=== PATIENT | female | born 1975 | race Caucasian/White ===

== ENCOUNTER 2017-07-05 00:45 | Emergency (ER) | payer MEDICARE ==
--- NOTE | 2017-07-05 01:20 | CT Preliminary Report ---
Exam: CT HEAD W/O STROKE PROTOCOL IMPRESSION: 1. No CT evidence of large vascular territory infarct or hemorrhage. 2. Bilateral frontal white matter lesions. Differential considerations include demyelinating disease or early microvascular change. RADIA The above findings were discussed with Dr. Mcgowan by Dr. Sedrick Ndiaye at 01:19 hrs on 07/05/17. SITE ID: [id number]
[2017-07-05 01:21] LABS: BASOPHILS # (AUTO) 0.1 10^3/uL (0.0-0.1); BASOPHILS % (AUTO) 1.1 %; EOSINOPHILS # (AUTO) 0.1 10^3/uL (0.0-0.7); EOSINOPHILS % (AUTO) 1.1 %; HCT - HEMATOCRIT 39.8 % (37.0-47.0); LYMPHOCYTES # (AUTO) 3.8 10^3/uL (1.5-3.5); LYMPHOCYTES % (AUTO) 27.2 %; MEAN CORPUSCULAR HEMOGLOBIN 29.2 pg (27.0-31.0); MEAN CORPUSCULAR HGB CONC 32.8 g/dL (32.0-36.0); MEAN CORPUSCULAR VOLUME 88.9 fL (81.0-99.0); MEAN PLATELET VOLUME 8.2 fL (7.9-10.8); MONOCYTES # (AUTO) 0.9 10^3/uL (0.0-1.0); MONOCYTES % (AUTO) 6.8 %; NEUTROPHILS # (AUTO) 8.9 10^3/uL (1.5-6.6); NEUTROPHILS % (AUTO) 63.8 %; NUCLEATED RED BLOOD CELLS AUTO 0.1 /100WBC; RED BLOOD COUNT 4.47 10^6/uL (4.20-5.40); RED CELL DISTRIBUTION WIDTH 14.1 % (12.0-15.0); UNCORRECTED WHITE BLOOD COUNT 13.9 x10^3/uL; WHITE BLOOD COUNT 13.9 x10^3/uL (4.8-10.8)
[2017-07-05 01:22] LABS: PT - PROTHROMBIN TIME 11.6 secs (9.9-12.6)
[2017-07-05] MEDS ORDERED: ALTEPLASE 100 MG in WATER FOR INJECTION,STERILE 100 ML IV STA (01:22)
--- NOTE | 2017-07-05 01:22 | ED Physician Documentation ---
PD HPI FOCAL NEURO - Stated complaint Stated Complaint: R SIDE PARALYSIS - Chief complaint Chief Complaint: Neuro - History obtained from History obtained from: Patient, EMS - History of Present Illness Timing - onset: How many hours ago (1.5) Timing - details: Abrupt onset, Still present Severity of deficit: Moderate Weakness: Face, Arm, Leg Numbness: Face, Leg Associated symptoms: No: Headache, Nausea / vomiting, Seizure, Syncope, Head injury Contributing factors: negative: Anticoagulated Baseline status: positive: A&OX3, ambulatory, indep Similar symptoms before: Has not had sx before Recently seen: Not recently seen - Additional information Additional information: Patient is a 42 year old female who is brought to the emergency department for right sided deficit. According to patient and ems, ems was originally contacted because the patient had smoked some marijuana and was feeling flushed. While patient was talking to police she developed right sided deficit at around 23:30. Patient states that she had storm's palsy once before and thought that it might be that, but this time it involved her face, arm and leg. Review of Systems Constitutional: denies: Fever, Chills Eyes: reports: Decreased vision. denies: Photophobia Ears: denies: Ear pain, Drainage/discharge Nose: denies: Congestion, Epistaxis Throat: denies: Dental pain / toothache, Sore throat Cardiac: denies: Chest pain / pressure, Palpitations Respiratory: denies: Wheezing GI: denies: Abdominal Pain, Nausea, Vomiting : reports: Reviewed and negative Skin: reports: Rash Musculoskeletal: denies: Neck pain, Back pain, Extremity pain Neurologic: reports: Focal weakness, Numbness, Difficulty speaking Immunocompromised: denies: Immunocompromised PD PAST MEDICAL HISTORY - Present Medications Home Medications: Ambulatory Orders Medication Instructions Recorded Confirmed No Known Home Medications [No 07/05/17 07/05/17 Known Home Medications] - Allergies Allergies/Adverse Reactions: Allergies Allergy/AdvReac Type Severity Reaction Status Date / Time meperidine HCl * Allergy Rash Verified 05/15/13 16:21 [From Demerol] - Social History Does the pt smoke?: Yes Smoking Status: Current every day smoker - Immunizations Immunizations are current?: Yes PD ED PE EXPANDED - Derm Derm: Rash (rash on bilateral lower feet) - Neuro Neuro: Alert and Oriented X 3, Right face (right sided facial droop), RUE (no movement), RLE (minimal movement with pain), Dysarthria NIHSS - Time Time: 01:15 - Level of Consciousness Level of consciousness: (0) Alert, Keenly responsive LOC Questions: (0) Answers both Q's correct LOC Commands: (0) Performs both correctly - Gaze Best Gaze: (0) Normal - Visual Visual: (1) Partial hemianopia - Facial Palsy Facial Palsy: (2) Partial paralysis - Motor Arms (both separate) Motor Arm (right): (4) No movement Motor Arm (left): (0) No drift - Motor Legs (both separate) Motor Leg (right): (2) Some effort against gravity Motor Leg (left): (0) No drift - Limb Ataxia Limb Ataxia: (2) Present in 2 limbs - Sensory Sensory: (1) Kffr-se-epjlcrkv loss - Best Language Best Language: (0) No aphasia - Dysarthria Dysarthria: (0) Normal - Extinction and Inattention (formally neg Extinction and inattention: (1) Visual,tactile,auditory,spatial, or personal inattention - Total Score/Results Total Score/Result: 13 Results - Vitals Vitals: Vital Signs - 24 hr 07/05/17 00:52 Temperature 36.0 C L Heart Rate 89 Respiratory 20 Rate Blood Pressure 169/102 H O2 Saturation 99 Oxygen O2 Source Room air - EKG (time done) 0105 Rate: Rate (enter#) (75) Rhythm: NSR [place]: Normal Intervals: Prolonged QT QRS: LVH Compare to prior EKG: Old EKG unavailable - Labs Labs: Laboratory Tests 07/05/17 07/05/17 07/05/17 01:11 01:11 01:11 WBC 13.9 H RBC 4.47 Hgb 13.0 Hct 39.8 MCV 88.9 MCH 29.2 MCHC 32.8 RDW 14.1 Plt Count 455 H MPV 8.2 Neut # 8.9 H Lymph # 3.8 H [place] # 0.9 Eos # 0.1 Baso # 0.1 Absolute Nucleated RBC 0.01 Nucleated RBC % 0.1 PT 11.6 INR 1.0 APTT 24.8 L Sodium 137 Potassium 3.2 L Chloride 102 Carbon Dioxide 24 Anion Gap 11.0 BUN 19 Creatinine 0.9 Estimated GFR (MDRD) 69 L Glucose 111 H Calcium 9.2 Total Bilirubin 0.5 AST 18 ALT 11 Alkaline Phosphatase 86 Total Protein 7.8 Albumin 4.1 Globulin 3.7 Albumin/Globulin Ratio 1.1 Lipase 21 L Salicylates < 6.0 - Rads (name of study) ct head Radiology: Final report received, Discussed with rads (no evidence of large vascular territory infarct or hemorrhage, bilateral frontal white matter lesions ) PD MEDICAL DECISION MAKING - ED course Complexity details: reviewed old records, reviewed results, re-evaluated patient , considered differential, d/w patient, d/w neuropsychology medical consultant ED course: Patient was seen and examined immediately at bedside and stroke protocol was ordered. Patient was sent for imaging, and [facility] neurology was notified. When patient returned from imaging the patient was examined by the tele/stroke team and patient had a significant deficit and no contraindication for tPa. It was decided to treat the patient. Alteplase was ordered and was pushed at 0140. arrangements were made for transfer. - TPA CVA checklist Inclusion crititeria: positive: Sig neuro deficit, CT no bleed, Onset know < 4.5 hr Absolute contraindications: negative: SBP>185 DBP>110 s/p tx, CT shows bleed, Known bleeding disorder, Surgery/trauma < 15 days, Seizure at onset Relative contraindications: negative: Too severe (NIHSS>22) Absolute contraindications if 3-4.5 hr: negative: Coumadin (any INR), Age > 80, Combo prior CVA & DM Departure - Departure Disposition: 02 Transfer Acute Care Hosp Clinical Impression: Cerebrovascular accident (CVA) Condition: Critical
--- NOTE | 2017-07-05 01:23 | CT Report ---
EXAM: CT HEAD EXAM DATE: 07/05/2017 01:09 AM. CLINICAL HISTORY: Right sided deficit. COMPARISON: None. TECHNIQUE: Multiaxial CT images were obtained from the foramen magnum to the vertex. IV contrast: Non e. Reformats: Coronal. In accordance with CT protocol optimization, one or more of the following dose reduction techniques w ere utilized for this exam: automated exposure control, adjustment of mA and/or KV based on patient s ize, or use of iterative reconstructive technique. FINDINGS: Parenchyma: No intraparenchymal hemorrhage. No evidence of mass, midline shift, or CT findings of inf arction. There is an 8 mm low-density focus involving the right frontal white matter. There is a low- density focus involving left frontal white matter as well. Extraaxial Spaces: Normal for age. No subdural or epidural collections identified. Ventricles: Normal in size and position. Sinuses and orbits: Imaged paranasal sinuses, orbits, and mastoids show no significant abnormality. Bones: No evidence of fracture or calvarial defect. Other: None. IMPRESSION: 1. No CT evidence of large vascular territory infarct or hemorrhage. 2. Bilateral frontal white matter lesions. Differential considerations include demyelinating disease or early microvascular change. RADIA The above findings were discussed with Dr. Mcgowan by Dr. Sedrick Ndiaye at 01:19 hrs on 07/05/17. Referring Provider Line: [phone] SITE ID: [id number]
[2017-07-05 01:29] LABS: PARTIAL THROMBOPLASTIN TIME 24.8 secs (24.9-33.3)
[2017-07-05 01:31] LABS: ALBUMIN/GLOBULIN RATIO 1.1 (1.0-2.2); BILIRUBIN,TOTAL 0.5 mg/dL (0.2-1.0); BUN - BLOOD UREA NITROGEN 19 mg/dL (6-20); CALCIUM 9.2 mg/dL (8.5-10.3); CARBON DIOXIDE - CO2 24 mmol/L (21-32); CHLORIDE 102 mmol/L (101-111); CREATININE 0.9 mg/dL (0.4-1.0); GFR - MDRD 69 (>89); GLUCOSE 111 mg/dL (70-100); LIPASE 21 U/L (22-51); POTASSIUM 3.2 mmol/L (3.5-5.0); SALICYLATE < 6.0 mg/dL; SODIUM 137 mmol/L (135-145); TOTAL PROTEIN 7.8 g/dL (6.7-8.2)
[2017-07-05] MEDS ORDERED: ALTEPLASE 100 MG VIAL ONE (01:34)
[2017-07-05 01:37] LABS: ACETAMINOPHEN < 10 ug/mL (10-30)
[2017-07-05 01:46] LABS: HCG UR QUAL NEGATIVE
[2017-07-05 03:13] VITALS: BP 177/106
== END 2017-07-05 03:18 | disposition short-term general hospital (02) ==
LOC: EDUNIT# → ED 00:45
DX: I63.9 Cerebral infarction, unspecified (principal); G81.91 Hemiplegia, unspecified affecting right dominant side; F17.200 Nicotine dependence, unspecified, uncomplicated
CPT/HCPCS: 36415; 51702; 70450; 80053; 80306; 80307; 81025; 83690; 84443; 85025; 85610; 85730; 93005; 96365; 99285; G0480; J2997; 80320; 80329

== ENCOUNTER 2019-04-03 16:27 | Emergency (ER) | payer MEDICARE, MEDICAID ==
[2019-04-03] MEDS ORDERED: LABETALOL 5 MG/1 ML 20 ML MDV IVP STA (16:59)
--- NOTE | 2019-04-03 17:01 | ED Physician Documentation ---
History of Present Illness - Stated complaint Stated Complaint: HIGH BP/PALPITATIONS/BLURRY VISION/BLISS - Chief complaint Chief Complaint: Cardiac - History obtained from History obtained from: Patient - History of Present Illness Timing: Other (43-year-old woman with history of CVA status post TPA and complete improvement. That was about 2 years ago. 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 She does have a history of hypertension and takes lisinopril 5 mg a day and Coreg 6.25 mg twice daily. For the last week she has had an increasing bitemporal headache that is severe but without light sensitivity or vomiting. No sudden onset or neck stiffness. She is also noted that her blood pressures been high at home without specific cause or change in her usual routine. She is compliant with her medications.) Review of Systems Ten Systems: 10 systems reviewed and negative Constitutional: denies: Fever, Chills Eyes: denies: Loss of vision, Decreased vision, Photophobia, Discharge Ears: denies: Loss of hearing PD PAST MEDICAL HISTORY - Past Medical History Past Medical History: Yes Cardiovascular: Hypertension, High cholesterol Neuro: CVA - Present Medications Home Medications: Ambulatory Orders Medication Instructions Recorded Confirmed Aspirin Chewable [St Pranav 81 mg PO DAILY 04/03/19 04/03/19 Aspirin] Atorvastatin [Lipitor] 0 mg 04/03/19 Carvedilol [Coreg] 6.25 mg PO 04/03/19 04/03/19 Lisinopril 5 mg PO 04/03/19 - Allergies Allergies/Adverse Reactions: Allergies Allergy/AdvReac Type Severity Reaction Status Date / Time meperidine HCl * Allergy Rash Verified 04/03/19 16:37 [From Demerol] - Social History Does the pt smoke?: Yes Smoking Status: Current every day smoker - Family History Family history: reports: Non contributory - Immunizations Immunizations are current?: Yes PD ED PE NORMAL - Vitals Vital signs reviewed: Yes - General General: Alert and oriented X 3, No acute distress - HEENT HEENT: PERRL, EOMI - Neck Neck: Supple, no meningeal sign, No bony TTP - Cardiac Cardiac: RRR, No murmur - Respiratory Respiratory: No respiratory distress, Clear bilaterally - Abdomen Abdomen: Normal bowel sounds, Soft, Non tender - Back Back: No CVA TTP, No spinal TTP - Derm Derm: Normal color, Warm and dry - Extremities Extremities: No edema, No calf tenderness / cord - Neuro Neuro: Alert and oriented X 3, executor of estate 2-12 intact, Normal speech Eye Opening: Spontaneous Motor: Obeys Commands Verbal: Oriented GCS Score: 15 Results - Vitals Vitals: Vital Signs - 24 hr 04/03/19 04/03/19 04/03/19 16:35 17:11 17:15 Temperature 36.4 C L Heart Rate 102 H 85 79 Respiratory 20 21 15 Rate Blood Pressure 210/126 H 175/135 H 190/115 H O2 Saturation 100 100 97 04/03/19 04/03/19 04/03/19 17:20 17:30 18:18 Temperature Heart Rate 77 73 75 Respiratory 18 14 16 Rate Blood Pressure 185/96 H 181/109 H 171/96 H O2 Saturation 98 98 98 Oxygen O2 Source Room air - EKG (time done) 1636 Rate: Rate (enter#) (95) Rhythm: NSR [place]: Normal Intervals: Normal DC QRS: Normal Ischemia: Normal ST segments Computer interpretation: Agree with computer - Labs Labs: Laboratory Tests 04/03/19 04/03/19 17:13 17:35 WBC 11.3 H RBC 4.40 Hgb 13.5 Hct 39.7 MCV 90.2 MCH 30.7 MCHC 34.0 RDW 13.3 Plt Count 347 MPV 10.3 Neut # (Auto) 7.4 H Lymph # (Auto) 3.1 [place] # (Auto) 0.8 Eos # (Auto) 0.0 Baso # (Auto) 0.0 Absolute Nucleated RBC 0.00 Nucleated RBC % 0.0 Sodium 139 Potassium 3.1 L Chloride 105 Carbon Dioxide 21 Anion Gap 13.0 BUN 10 Creatinine 0.7 Estimated GFR (MDRD) 92 Glucose 104 H Calcium 9.2 Total Bilirubin 1.3 H AST 21 ALT 22 Alkaline Phosphatase 83 Total Protein 7.2 Albumin 4.0 Globulin 3.2 Albumin/Globulin Ratio 1.3 Lipase 23 - Rads (name of study) CT Head Radiology: EMP read contemporaneously (white matter lesions, stable since 06/27) PD MEDICAL DECISION MAKING - ED course ED course: 43-year-old woman with headache related to significant elevated hypertension. After 2 doses of IV labetalol her blood pressure was 160/99 and she was feeling better. Departure - Departure Disposition: 01 Home, Self Care Clinical Impression: Hypertension Qualifiers: Hypertension type: essential hypertension Qualified Code(s): I10 - Essential (primary) hypertension Headache Qualifiers: Headache type: unspecified Headache chronicity pattern: acute headache Intractability: not intractable Qualified Code(s): R51 - Headache Condition: Good Record reviewed to determine appropriate education?: Yes Instructions: ED Headache Tension Comments: Increase your lisinopril to 10 mg once a day, if blood pressures remain high you can double it to 10 mg twice a day. Continue your current carvedilol dose. Follow-up with your physician for recheck in the next couple of days.
[2019-04-03 17:20] LABS: BASOPHILS % (AUTO) 0.2 %; EOSINOPHILS % (AUTO) 0.4 %; HGB - HEMOGLOBIN 13.5 g/dL (12.0-16.0); LYMPHOCYTES # (AUTO) 3.1 10^3/uL (1.5-3.5); LYMPHOCYTES % (AUTO) 27.4 %; MEAN CORPUSCULAR HEMOGLOBIN 30.7 pg (27.0-31.0); MEAN CORPUSCULAR VOLUME 90.2 fL (81.0-99.0); MEAN PLATELET VOLUME 10.3 fL (7.9-10.8); MONOCYTES # (AUTO) 0.8 10^3/uL (0.0-1.0); MONOCYTES % (AUTO) 6.6 %; NEUTROPHILS # (AUTO) 7.4 10^3/uL (1.5-6.6); PLT - PLATELET COUNT 347 10^3/uL (130-450); RED CELL DISTRIBUTION WIDTH 13.3 % (12.0-15.0); WHITE BLOOD COUNT 11.3 x10^3/uL (4.8-10.8)
[2019-04-03 18:04] LABS: ALBUMIN/GLOBULIN RATIO 1.3 (1.0-2.2); BILIRUBIN,TOTAL 1.3 mg/dL (0.2-1.0); CALCIUM 9.2 mg/dL (8.5-10.3); CREATININE 0.7 mg/dL (0.4-1.0); TOTAL PROTEIN 7.2 g/dL (6.7-8.2)
[2019-04-03] MEDS ORDERED: LISINOPRIL 5 MG TABLET PO STA (18:13)
--- NOTE | 2019-04-03 18:14 | CT Report ---
Reason: headache Procedure Date: 04/03/2019 Accession Number: [id number] / [id number] Procedure: CT - HEAD WO CPT Code: FULL RESULT: EXAM: CT HEAD EXAM DATE: 04/03/2019 05:47 PM. CLINICAL HISTORY: Headache. COMPARISON: HEAD W/O 07/05/2017 1:01 AM. TECHNIQUE: Multiaxial CT images were obtained from the foramen magnum to the vertex. Reformats: Sagittal and coronal. IV contrast: None. In accordance with CT protocol optimization, one or more of the following dose reduction techniques were utilized for this exam: automated exposure control, adjustment of mA and/or KV based on patient size, or use of iterative reconstructive technique. FINDINGS: Parenchyma: No intra-axial blood products. Garcia-white junction is normal. Stable bilateral inhomogeneity with slight patchy decreased densities within the anterior white matter of both frontal lobes, involving the anterior centrum semiovale. No associated mass-effect. No new lesions. Extraaxial Spaces: Normal for age. No subdural or epidural collections identified. Ventricles: Normal in size and position. Sinuses and Orbits: Imaged paranasal sinuses, orbits, and mastoids show no significant abnormality. Bones: No evidence of fracture or calvarial defect. Other: None. IMPRESSION: 1. No acute intracranial abnormality nor bleed. 2. Stable persistent or recurrent nonspecific anterior bifrontal white matter lesions. Differential remains unchanged: Demyelinating process, vasculitis, gliosis secondary to previous vascular inflammatory insult. Recommend clinical correlation to determine if further evaluation with a head MRI is indicated. RADIA
[2019-04-03] MEDS ORDERED: POTASSIUM CHLORIDE 20 MEQ TABLET PO STA (18:15)
[2019-04-03 18:20] VITALS: BP 171/96
== END 2019-04-03 19:09 | disposition home or self-care (01) ==
LOC: ED 16:27
DX: I10 Essential (primary) hypertension (principal); R51 Headache; Z86.73 Personal history of transient ischemic attack (TIA), and cerebral infarction without residual deficits; Z79.82 Long term (current) use of aspirin; F17.200 Nicotine dependence, unspecified, uncomplicated
CPT/HCPCS: 36415; 70450; 80053; 83690; 85025; 93005; 96374; 99283; 99284; A9270

== ENCOUNTER 2020-09-02 10:34 | Outpatient (CLI) | payer MEDICARE, MEDICAID ==
--- NOTE | 2020-09-07 13:47 | Mammography Report ---
BILATERAL DIGITAL DIAGNOSTIC MAMMOGRAM 3D/2D: 09/02/2020 CLINICAL: Palpable right breast lump. Baseline. No prior exams were available for comparison. The tissue of both breasts is heterogeneously dense. T his may lower the sensitivity of mammography. No significant masses, calcifications, or other findings are seen in either breast. IMPRESSION: INCOMPLETE: NEEDS ADDITIONAL IMAGING EVALUATION There is no mammographic abnormality seen in the right breast to correspond with the palpable abnorma lity at 6 o'clock, however, targeted ultrasound of the right breast is recommended and will be perfor med immediately following this exam. This exam was interpreted at Station ID: [id number]. NOTE: For mammograms, a report in lay terms will be sent to the patient. Approximately 15% of breast malignancies will not be visualized mammographically. In the management of a palpable breast mass, a negative mammogram must not discourage biopsy of a clinically suspicious lesion. Electronically Signed By: Mira Spears M.D. lk/:09/02/2020 11:56:19 ACR BI-RADS Category 0: Incomplete 3340F PARENCHYMAL PATTERN: (D) - The breast(s) demonstrate(s) heterogeneously dense fibroglandular [place] band[place]. BI-RADS CATEGORY: (0) - 0 Ultrasound [id number] Immediate follow-up LATERALITY: (B)
--- NOTE | 2020-09-07 13:47 | Ultrasound Report ---
LIMITED ULTRASOUND OF RIGHT BREAST: 09/02/2020 CLINICAL: Palpable right breast lump. Comparison is made to exam dated: 09/02/2020 mammogram - [facility]. Ultrasound of the right breast 5-6 o'clock region was performed on the area of interest. IMPRESSION: NEGATIVE There is no sonographic evidence of malignancy. There is no mammographic or sonographic abnormality seen in the right breast to correspond with the p alpable abnormality, however, clinical followup is recommended. A 1 year screening mammogram is recommended. This exam was interpreted at Station ID: Unknown. Electronically Signed By: Mira Spears M.D. lk/:09/07/2020 13:41:42 Ultrasound BI-RADS: 1 Negative BI-RADS CATEGORY: (1) - 1 RECOMMENDATION: (ANNUAL) - Recommend routine annual screening mammography. [id number] 1 year screening LATERALITY: (B)
== END 2020-09-02 10:35 | disposition home or self-care (01) ==
LOC: DI 10:34
PROVIDERS: ATTEND Physician Assistant
DX: Z12.39 Encounter for other screening for malignant neoplasm of breast (principal); N63.14 Unspecified lump in the right breast, lower inner quadrant

== ENCOUNTER 2021-02-28 20:32 | Outpatient (CLI) | payer MEDICARE, MEDICAID | END 2021-02-28 20:33 | disposition critical access hospital (66) | LOC: EMS 20:32 | DX: R55 Syncope and collapse (principal); S00.81XA Abrasion of other part of head, initial encounter; S60.512A Abrasion of left hand, initial encounter; S80.212A Abrasion, left knee, initial encounter; S20.312A Abrasion of left front wall of thorax, initial encounter; W19.XXXA Unspecified fall, initial encounter; Y93.01 Activity, walking, marching and hiking | CPT/HCPCS: A0425; A0429 ==

== ENCOUNTER 2021-02-28 20:50 | Emergency (ER) | payer MEDICARE, MEDICAID ==
[2021-02-28] MEDS ORDERED: SODIUM CHLORIDE 0.9% 1,000 ML IV STA (21:13)
[2021-02-28 22:14] LABS: BASOPHILS % (AUTO) 0.3 %; EOSINOPHILS # (AUTO) 0.1 10^3/uL (0.0-0.7); EOSINOPHILS % (AUTO) 0.5 %; HCT - HEMATOCRIT 38.4 % (37.0-47.0); HGB - HEMOGLOBIN 12.9 g/dL (12.0-16.0); LYMPHOCYTES # (AUTO) 2.9 10^3/uL (1.5-3.5); LYMPHOCYTES % (AUTO) 22.3 %; MEAN CORPUSCULAR HEMOGLOBIN 32.3 pg (27.0-31.0); MEAN CORPUSCULAR HGB CONC 33.6 g/dL (32.0-36.0); MEAN PLATELET VOLUME 10.2 fL (7.9-10.8); MONOCYTES # (AUTO) 0.7 10^3/uL (0.0-1.0); MONOCYTES % (AUTO) 5.7 %; NEUTROPHILS # (AUTO) 9.2 10^3/uL (1.5-6.6); NEUTROPHILS % (AUTO) 70.9 %; PLT - PLATELET COUNT 325 10^3/uL (130-450); RED CELL DISTRIBUTION WIDTH 12.9 % (12.0-15.0)
[2021-02-28 22:28] LABS: ALBUMIN 3.9 g/dL (3.2-5.5); ALBUMIN/GLOBULIN RATIO 1.4 (1.0-2.2); BILIRUBIN,TOTAL 0.9 mg/dL (0.2-1.0); CALCIUM 8.6 mg/dL (8.5-10.3); CREATININE 0.8 mg/dL (0.4-1.0); POTASSIUM 3.4 mmol/L (3.5-5.0); TOTAL PROTEIN 6.6 g/dL (6.7-8.2)
--- NOTE | 2021-02-28 22:37 | ED Physician Documentation ---
History of Present Illness - Stated complaint Stated Complaint: SYNCOPE - Chief complaint Chief Complaint: Neuro - History obtained from History obtained from: Patient - Additonal information Additional information: Patient comes emergency department chief complaint of syncopal episode today. She states she was standing and talking to a friend when she suddenly began to feel lightheaded. She states that she then broke out in a sweat and began to have tunnel vision. She denies any chest pain or shortness of breath at the time. No focal weakness. She states that she had been drinking water today, but that the weather has been hot so she was not sure if that had something to do with it. She had also been at her parents house and that they had their fireplace on despite the heat. However, she states she had left the house and had felt as though she had been able to cool off. Patient denies recent illness. She states that she lost consciousness completely after she developed the tunnel vision and fell to the ground. Reportedly, she was unconscious only briefly before regaining consciousness. She states that now, she feels fairly normal except that the left side of her face hurts and has some numbness. She has noticed swelling and feels as though she struck that area. She also reports abrasions to her right knee. No other complaints at this time. No recent dose changes in her medications. She did have 1 shot of alcohol about 4 hours prior to the incident. No other drugs. No other complaints at this time. Review of Systems Ten Systems: 10 systems reviewed and negative Constitutional: reports: Reviewed and negative Eyes: reports: Reviewed and negative Ears: reports: Reviewed and negative Nose: reports: Reviewed and negative Throat: reports: Reviewed and negative Cardiac: reports: Reviewed and negative Respiratory: reports: Reviewed and negative GI: reports: Reviewed and negative : reports: Reviewed and negative Skin: reports: Reviewed and negative Musculoskeletal: reports: Reviewed and negative Neurologic: reports: Syncope, Head injury, LOC Psychiatric: reports: Reviewed and negative Endocrine: reports: Reviewed and negative Immunocompromised: reports: Reviewed and negative PD PAST MEDICAL HISTORY - Past Medical History Past Medical History: Yes Cardiovascular: Hypertension, High cholesterol Neuro: CVA - Present Medications Home Medications: Ambulatory Orders Medication Instructions Recorded Confirmed Aspirin Chewable [St Pranav 81 mg PO DAILY 04/03/19 04/03/19 Aspirin] Atorvastatin [Lipitor] 0 mg 04/03/19 Carvedilol [Coreg] 6.25 mg PO 04/03/19 04/03/19 lisinopriL [Lisinopril] 5 mg PO 04/03/19 Amox/Clav 875/125 [Augmentin 1 tablet PO Q12H 10 Days #20 tablet 03/01/21 875/125 Tab] HYDROcod/ACETAM 5/325 [Mclean 5/325] 1 - 2 tablet PO Q6H PRN #20 tablet 03/01/21 - Allergies Allergies/Adverse Reactions: Allergies Allergy/AdvReac Type Severity Reaction Status Date / Time meperidine HCl * Allergy Rash Verified 02/28/21 21:04 [From Demerol] - Social History Does the pt smoke?: Yes Smoking Status: Current every day smoker Does the pt drink ETOH?: Yes Does the pt have substance abuse?: No - Immunizations Immunizations are current?: Yes PD ED PE NORMAL - Vitals Vital signs reviewed: Yes - General General: Alert and oriented X 3, No acute distress, Well developed/nourished - HEENT HEENT: PERRL, EOMI, Moist mucous membranes, Other (Tenderness, moderate edema, and contusion over left maxilla and zygomatic area) - Neck Neck: Supple, no meningeal sign, No bony TTP - Cardiac Cardiac: RRR, No murmur - Respiratory Respiratory: No respiratory distress, Clear bilaterally - Abdomen Abdomen: Soft, Non tender, Non distended - Back Back: No spinal TTP - Derm Derm: Warm and dry, No rash, Other (Well color other than facial contusion) - Extremities Extremities: No deformity, No edema, No calf tenderness / cord - Neuro Neuro: Alert and oriented X 3, him manager 2-12 intact, No motor deficit, No sensory deficit, Normal speech - Psych Psych: Normal mood, Normal affect Results - Vitals Vitals: Vital Signs - 24 hr 02/28/21 02/28/21 03/01/21 20:55 22:58 00:00 Temperature 99.2 C H Heart Rate 77 87 80 Respiratory 16 17 18 Rate Blood Pressure 145/86 H 129/80 131/88 H O2 Saturation 100 100 99 03/01/21 00:53 Temperature 36.7 C Heart Rate 79 Respiratory 16 Rate Blood Pressure 124/85 H O2 Saturation 100 Oxygen O2 Source Room air - Labs Labs: Laboratory Tests 06/20/21 06/20/21 22:00 22:00 WBC 13.0 H RBC 4.00 L Hgb 12.9 Hct 38.4 MCV 96.0 MCH 32.3 H MCHC 33.6 RDW 12.9 Plt Count 325 MPV 10.2 Neut # (Auto) 9.2 H Lymph # (Auto) 2.9 [place] # (Auto) 0.7 Eos # (Auto) 0.1 Baso # (Auto) 0.0 Absolute Nucleated RBC 0.00 Nucleated RBC % 0.0 Sodium 138 Potassium 3.4 L Chloride 107 Carbon Dioxide 22 Anion Gap 9.0 BUN 13 Creatinine 0.8 Estimated GFR (MDRD) 78 L Glucose 92 Calcium 8.6 Total Bilirubin 0.9 AST 21 ALT 22 Alkaline Phosphatase 62 Total Protein 6.6 L Albumin 3.9 Globulin 2.7 Albumin/Globulin Ratio 1.4 Lipase 27 PD MEDICAL DECISION MAKING - ED course Complexity details: reviewed results, re-evaluated patient, considered differential, d/w patient ED course: Patient was treated with IV fluids and worked up with labs, EKG, and CT scans of the head and face. Facial CT did show fractures of the maxillary wall and the inferior orbital floor. The patient was feeling better after symptomatic treatment in the emergency department, though she was still having some pain and throbbing. I discussed the findings with her and that she will need to follow- up with the oromaxillofacial surgeon in [place], Dr. Cassidy. Patient was started on Augmentin and given a prescription for the same. We have discussed the importance of contacting Dr. Wyatt's office first thing tomorrow morning and of following up to be sure there is no cause defect from the fractures. We discussed the usual indications for return. Departure - Departure Disposition: 01 Home, Self Care Clinical Impression: Episode of syncope Qualifiers: Syncope type: unspecified Qualified Code(s): R55 - Syncope and collapse Maxillary fracture Qualifiers: Encounter type: initial encounter Fracture type: closed Laterality: left Qualified Code(s): S02.40DA - Maxillary fracture, left side, initial encounter for closed fracture Fracture of inferior orbital wall Qualifiers: Encounter type: initial encounter Fracture type: closed Laterality: left Qualified Code(s): S02.32XA - Fracture of orbital floor, left side, initial encounter for closed fracture Condition: Stable Instructions: ED Fx Face, ED Fainting Unkn Cause Follow-Up: KING CASSIDY [Physician No Access] - King Cassidy DDS [Provider Admit Priv/Credential] - Prescriptions: Amox/Clav 875/125 [Augmentin 875/125 Tab] 1 tablet PO Q12H 10 Days #20 tablet HYDROcod/ACETAM 5/325 [Mclean 5/325] 1 - 2 tablet PO Q6H PRN #20 tablet PRN Reason: Pain Comments: Your labs look good. Your CT scans show breaks in your cheek bone and the bone and the floor of your eye socket. You will need to follow-up with the oral and facial surgeon in [place], Dr. Cassidy. He will be able to determine whether the injury needs surgical repair or can heal on its own. In the meantime, you have been started on antibiotics because there is bacteria in the sinus that can potentially spread into your eye socket, which we do not want. You have also been prescribed pain medication. Please call the oral/maxillofacial surgeon's office first thing tomorrow morning for follow-up. Discharge Date/Time: 03/01/21 01:16
[2021-02-28] MEDS ORDERED: HYDROmorphone 0.5 MG/0.5 ML SYRINGE IVP STA (22:51)
[2021-03-01] MEDS ORDERED: AMOX/CLAV 875 MG/125 MG TABLET PO STA (00:41)
[2021-03-01 00:53] VITALS: BP 124/85
[2021-03-01] MEDS ORDERED: HYDROcod/ACETAM 5/325 MG TABLET PO STA (00:57)
--- NOTE | 2021-03-01 07:15 | CT Report ---
PROCEDURE: HEAD WO INDICATIONS: syncope/head injury TECHNIQUE: Noncontrast 4.5 mm thick angled axial sections acquired from the foramen magnum to the vertex. For r adiation dose reduction, the following was used: automated exposure control, adjustment of mA and/or kV according to patient size. COMPARISON: 04/03/2018.. FINDINGS: Image quality: Excellent. CSF spaces: Basal cisterns are patent. No extra-axial fluid collections. Ventricles are normal in size and shape. Brain: No midline shift. No intracranial masses or hemorrhage. Garcia-white matter interface is norm al. Skull and face: Calvarium and visualized facial bones are intact, without suspicious lesions. Sinuses: Visualized sinuses and mastoids are clear. IMPRESSION: No acute intracranial disease process. Reviewed by: Ronda Aguila MD, PhD on 03/01/2021 7:14 AM PDT Approved by: Ronda Aguila MD, PhD on 03/01/2021 7:14 AM PDT Station ID: [id number]
--- NOTE | 2021-03-01 09:26 | CT Report ---
PROCEDURE: MAXILLOFACIAL WO INDICATIONS: syncope/facial injury TECHNIQUE: Noncontrast 1.5 mm thick axial images acquired from the mandible through the frontal sinuses, with co shai and sagittal reformatting. For radiation dose reduction, the following was used: automated ex posure control, adjustment of mA and/or kV according to patient size. COMPARISON: CT head 02/28/2021, 04/03/2019. FINDINGS: Image quality: Excellent. Bones and teeth: There is a comminuted inferior left orbital wall fracture with fat herniation. There is no rectus muscle entrapment. Nasal bones and septum are intact. Visualized portions of the dillon ble demonstrate no fractures or subluxation. There is a slightly more prominent buckle appearance of the left zygomatic arch with a punctate area of adjacent soft tissue air. Pterygoid plates are intact . Visualized portions of the skull base and auditory canals are intact. Sinuses: There is a comminuted lateral left maxillary wall sinus fracture. There is opacification wit hin the left maxillary sinus. There is also a nondisplaced fracture of the left anteromedial maxillar y sinus wall. Soft tissues: There is present in the left temporalis fossa.. No enlarged lymph nodes. No soft tiss ue lacerations or debris. Vascular: Visualized vascular structures appear normal in the absence of contrast. Bony vascular fo ramina and canals are intact. IMPRESSION: 1. Comminuted inferior left orbital wall fracture. 2. Comminuted left lateral maxillary sinus wall fracture as well as nondisplaced left anterior medial maxillary sinus wall fracture. There is opacification within the left maxillary sinus presumably flu id/blood. 3. Slight increased buckle deformity of the left zygomatic arch with punctate areas adjacent soft tis ivon air suggestive of fracture. The above findings are concordant with preliminary report. Reviewed by: Madai Santillan MD on 03/01/2021 9:25 AM PDT Approved by: Madai Santillan MD on 03/01/2021 9:25 AM PDT Station ID: [id number]
== END 2021-03-01 01:16 | disposition home or self-care (01) ==
LOC: EDUNIT# → ED 20:50
DX: S02.40DA Maxillary fracture, left side, initial encounter for closed fracture (principal); S02.32XA Fracture of orbital floor, left side, initial encounter for closed fracture; W19.XXXA Unspecified fall, initial encounter; F17.200 Nicotine dependence, unspecified, uncomplicated; I10 Essential (primary) hypertension
CPT/HCPCS: 36415; 70450; 70486; 80053; 83690; 85025; 93005; 96361; 96374; 99283; 99284; A9270; J1170

== ENCOUNTER 2021-10-06 12:56 | Outpatient (CLI) | payer MEDICARE, MEDICAID ==
--- NOTE | 2021-10-07 06:32 | Mammography Report ---
BILATERAL DIGITAL SCREENING MAMMOGRAM 3D/2D: 10/06/2021 CLINICAL: Routine screening. Comparison is made to exams dated: 09/02/2020 ultrasound and 09/02/2020 mammogram - [facility]. The tissue of both breasts is heterogeneously dense. This may lower the sensitivity of mammography. No significant masses, calcifications, or other findings are seen in either breast. There has been no significant interval change. IMPRESSION: NEGATIVE There is no mammographic evidence of malignancy. A 1 year screening mammogram is recommended. This exam was interpreted at Station ID: [id number]. NOTE: For mammograms, a report in lay terms will be sent to the patient. Approximately 15% of breast malignancies will not be visualized mammographically. In the management of a palpable breast mass, a negative mammogram must not discourage biopsy of a clinically suspicious lesion. Electronically Signed By: Cornelio Cordon M.D. ddp/penrad:10/06/2021 13:57:43 ACR BI-RADS Category 1: Negative 3341F PARENCHYMAL PATTERN: (D) - The breast(s) demonstrate(s) heterogeneously dense fibroglandular west banda. BI-RADS CATEGORY: (1) - 1 RECOMMENDATION: (ANNUAL) - Recommend routine annual screening mammography. [id number] 1 year screening LATERALITY: (B)
== END 2021-10-06 12:57 | disposition home or self-care (01) ==
LOC: DI.N 12:56
PROVIDERS: ATTEND Student in an Organized Health Care Education/Training Program
DX: Z12.31 Encounter for screening mammogram for malignant neoplasm of breast (principal)

== ENCOUNTER 2023-07-07 14:36 | Outpatient (CLI) | payer MEDICARE, MEDICAID ==
--- NOTE | 2023-07-10 11:31 | Mammography Report ---
BILATERAL DIGITAL SCREENING MAMMOGRAM 3D/2D: 07/07/2023 CLINICAL: Routine screening. Comparison is made to exams dated: 10/06/2021 mammogram and 09/02/2020 mammogram - [facility]. Both breasts are heterogeneously dense, which may obscure small masses (category c / 51-75% glandular tissue). No significant masses, calcifications, or other findings are seen in either breast. There has been no significant interval change. IMPRESSION: NEGATIVE There is no mammographic evidence of malignancy. A 1 year screening mammogram is recommended. Based on the Tyrer Cuzick model (a risk assessment model) the patients lifetime risk is 9.6% and her 10 year risk is 1.9%. According to the ACR, ACS, and NCCN guidelines, an annual breast MRI exam seamus g with mammogram is recommended if the patients lifetime risk is 20% or greater. This exam was interpreted at Station ID: [id number]. NOTE: For mammograms, a report in lay terms will be sent to the patient. Approximately 15% of breast malignancies will not be visualized mammographically. In the management of a palpable breast mass, a negative mammogram must not discourage biopsy of a clinically suspicious lesion. Electronically Signed By: Eddi palm/michell:07/07/2023 21:35:40 letter sent: No_Letter ACR BI-RADS Category 1: Negative 3341F PARENCHYMAL PATTERN: (D) - The breast(s) demonstrate(s) heterogeneously dense fibroglandular west banda. BI-RADS CATEGORY: (1) - 1 Mammogram [id number] 1 year screening LATERALITY: (B)
== END 2023-07-07 14:37 | disposition home or self-care (01) ==
LOC: DI 14:36
PROVIDERS: ATTEND Student in an Organized Health Care Education/Training Program
DX: Z12.31 Encounter for screening mammogram for malignant neoplasm of breast (principal); R92.333 Mammographic heterogeneous density, bilateral breasts

== ENCOUNTER 2023-08-01 11:06 | Outpatient (CLI) | payer MEDICARE, MEDICAID ==
--- NOTE | 2023-08-01 11:45 | XRAY Report ---
PROCEDURE: Shoulder 3 View LT INDICATIONS: LEFT SHOULDER PAIN TECHNIQUE: 3 views of the shoulder were acquired. COMPARISON: None. FINDINGS: Bones: No fractures or dislocations. No suspicious bony lesions. Visualized ribs appear intact. Soft tissues: No suspicious soft tissue calcifications. The visualized lungs are within normal limi ts. IMPRESSION: No acute bony abnormality. Reviewed by: Jeb Chau on 08/01/2023 11:44 AM [facility] Approved by: Jeb Chau on 08/01/2023 11:44 AM [facility] Station ID: [id number]
== END 2023-08-01 11:07 | disposition home or self-care (01) ==
LOC: DI 11:06
PROVIDERS: ATTEND Student in an Organized Health Care Education/Training Program
DX: M25.512 Pain in left shoulder (principal)